=== PATIENT | male | born 1955 | race Hispanic/Latino ===

== ENCOUNTER → 2024-12-14 | Day surgery (SDC) | payer MEDICARE ==
[2024-12-07 08:51] LABS: BASOPHILS % 0.4 % (0.0-1.0); EOSINOPHILS % 4.5 % (0.0-6.0); LYMPHOCYTES % 41.1 % (18.0-39.1); MONOCYTES % 6.0 % (4.4-11.3); NEUTROPHILS % 47.9 % (38.7-80.0); RED CELL DISTRIBUTION WIDTH 19.0 % (11.7-14.4)
[~2024-12-14] MED LIST: AMLODIPINE BESYL5 MG PO; IRON325 M1 PO; LIDOCAINE HCL 2% LOCAL INJ 5 ML SDV VIAL INJ ONE; LOSARTAN POTAS100 MG PO; METFORMIN HCL500 MG PO; OZEMPIC0.25 MG/02 SQ; PHENYLEPHRINE HCL 1% 10 MG/ML VIAL ONE; PIOGLITAZONE HC30 MG PO; PROPOFOL IV EMULSION 10 MG/ML 20 ML VIAL ONE; PROPOFOL IV EMULSION 50 ML IV ONE; SODIUM CHLORIDE 0.9% INJ 10 ML VIAL ONE; VITAMIN C500 MG PO
[2024-12-14] MEDS: LACTATED RINGER'S 1,000 ML ONE (08:56)
[2024-12-14 10:44] VITALS: TEMP 97
[2024-12-14 11:15] VITALS: BP 115/62; PULSE 68; RESP 16; O2SAT 99
[2024-12-14 12:29] LABS: CDIFF AG QUIK CHEK NEGATIVE (NEGATIVE)
[2024-12-14 12:30] LABS: CDIFF TOX QUIK CHEK NEGATIVE (NEGATIVE)
[2024-12-17 20:10] LABS: ENDOMYSIAL ANTIBODIES, IGA Negative (Negative)
[2024-12-17 21:05] LABS: TISSUE TRANSGLUTAMINASE IGA AB <2 U/mL (0-3)
== END | disposition home or self-care (01) ==
LOC: OR 07:51
PROVIDERS: ATTEND Internal Medicine Gastroenterology
DX: D64.9 Anemia, unspecified (principal); D12.3 Benign neoplasm of transverse colon; D12.8 Benign neoplasm of rectum; K29.50 Unspecified chronic gastritis without bleeding; K25.9 Gastric ulcer, unspecified as acute or chronic, without hemorrhage or perforation; K31.89 Other diseases of stomach and duodenum; K64.8 Other hemorrhoids; E11.9 Type 2 diabetes mellitus without complications; I10 Essential (primary) hypertension; N40.0 Benign prostatic hyperplasia without lower urinary tract symptoms; N20.0 Calculus of kidney; Z88.6 Allergy status to analgesic agent; Z01.810 Encounter for preprocedural cardiovascular examination; Z01.812 Encounter for preprocedural laboratory examination; Z79.84 Long term (current) use of oral hypoglycemic drugs; Z79.85 Long-term (current) use of injectable non-insulin antidiabetic drugs; Z79.899 Other long term (current) drug therapy; Z85.46 Personal history of malignant neoplasm of prostate
CPT/HCPCS: 36415; 43239; 45378; 45380; 45385; 82784; 82948; 83516; 83630; 83993; 85025; 86256; 87045; 87177; 87324; 87328; 87449; 93005; J2003; J2371; J2470